=== PATIENT | male | born 1950 | race American Indian/Alaskan Native ===

== ENCOUNTER 2017-02-15 12:02 | Emergency (ER) | payer MEDICARE ==
[2017-02-15 12:52] LABS: Basophils % (Auto) 0.7 % (0.0-1.8); Eosinophils % (Auto) 0.7 % (0.0-4.3); Hematocrit 37.8 % (35.5-45.6); Hemoglobin 12.5 gm/dl (11.8-15.2); Mean Corpuscular HGB Conc 33 % (32-34); Mean Corpuscular Hemoglobin 31 pg (28-32); Mean Corpuscular Volume 93 fl (84-94); Platelet Count 179 K/mm3 (140-440); Red Blood Count 4.07 M/mm3 (3.65-5.03); White Blood Count 6.5 K/mm3 (4.5-11.0)
--- NOTE | 2017-02-15 12:59 | Emergency Department Report ---
ED Seizure HPI - General Chief Complaint: Seizure Stated Complaint: SEIZURE Time Seen by Provider: 02/15/17 12:04 Source: patient, EMS, RN notes reviewed Mode of arrival: Stretcher Limitations: No Limitations - History of Present Illness Initial Comments: 66-year-old male presents to the emergency department via EMS from a local detention after a witnessed seizure. Per report, the patient was sitting in his wheelchair when he had a seizure. Patient fell out of wheelchair and reportedly hit his head. Patient has a known history of seizures and apparently has been taking his medication at the detention. Patient is denying complaints at this time. There are no other complaints. MD Complaint: seizure -: Sudden, This morning Description of Episode: tonic-clonic movement Witnessed:: Yes Trauma: Yes (hit head on floor) Seizure History: known seizure disorder, compliant with medication Place: other (detention) Possible Precipitating Event: none Associated Symptoms: denies other symptoms Treatments Prior to Arrival: none - Related Data Allergies Allergy/AdvReac Type Severity Reaction Status Date / Time No Known Allergies Allergy Unverified 02/15/17 12:47 ED Review of Systems ROS: Stated complaint: SEIZURE Other details as noted in HPI Comment: All other systems reviewed and negative Neurological: as per HPI (seizure) ED Past Medical Hx - Past Medical History Previous Medical History?: Yes Hx Hypertension: Yes Hx Seizures: Yes Hx Psychiatric Treatment: Yes (Bipolar) Additional medical history: Hepatitis C - Surgical History Past Surgical History?: No - Family History Family history: no significant - Social History Smoking Status: Former Smoker Substance Use Type: None ED Physical Exam - General Limitations: No Limitations General appearance: alert, in no apparent distress - Head Head exam: Present: atraumatic, normocephalic - Eye Eye exam: Present: normal appearance, PERRL, EOMI - ENT ENT exam: Present: normal exam, normal orophraynx, mucous membranes moist - Neck Neck exam: Present: normal inspection, full ROM. Absent: tenderness - Respiratory Respiratory exam: Present: normal lung sounds bilaterally. Absent: respiratory distress - Cardiovascular Cardiovascular Exam: Present: regular rate, normal rhythm, normal heart sounds - GI/Abdominal GI/Abdominal exam: Present: soft, normal bowel sounds. Absent: distended, tenderness - Extremities Exam Extremities exam: Present: normal inspection, full ROM. Absent: tenderness - Back Exam Back exam: Present: normal inspection, full ROM. Absent: tenderness - Neurological Exam Neurological exam: Present: alert, oriented X3. Absent: motor sensory deficit - Skin Skin exam: Present: warm, dry, intact ED Course Vital Signs 02/15/17 02/15/17 12:40 12:50 Temperature 98.4 F Pulse Rate 101 H Respiratory 16 16 Rate Blood Pressure 161/104 O2 Sat by Pulse 98 98 Oximetry ED Medical Decision Making - Lab Data Result diagrams: 02/15/17 12:36 02/15/17 12:36 - Radiology Data Radiology results: report reviewed Head CT shows a left parietal scalp hematoma. There is left temporal encephalomalacia. There are no other acute abnormalities. - Medical Decision Making Lab and imaging results reviewed. Patient has had no further seizure activity in the emergency department. Patient will be discharged back to the detention at this time. - Differential Diagnosis seizure, closed head injury, electrolyte abnormality, UTI Critical care attestation.: If time is entered above; I have spent that time in minutes in the direct care of this critically ill patient, excluding procedure time. ED Disposition Clinical Impression: Seizure disorder Scalp hematoma Qualifiers: Encounter type: initial encounter Qualified Code(s): S00.03XA - Contusion of scalp, initial encounter Disposition: DC/TX-70 ANOTHER TYPE HLTHCARE Is pt being admited?: No Condition: Stable Instructions: Recurrent Seizures Adult (ED), Scalp Contusion in Adults (ED) Referrals: PRIMARY CARE, [Primary Care Provider] - 3-5 Days Time of Disposition: 14:00
[2017-02-15 13:09] LABS: Anion Gap 17 mmol/L; BUN/Creatinine Ratio 17.14; Blood Urea Nitrogen 12 mg/dL (9-20); Calcium 8.9 mg/dL (8.4-10.2); Carbon Dioxide 25 mmol/L (22-30); Chloride 102.7 mmol/L (98-107); Glucose 117 mg/dL (75-100); Potassium 3.9 mmol/L (3.6-5.0); Sodium 141 mmol/L (137-145)
--- NOTE | 2017-02-15 13:15 | Cat Scan Report ---
CT HEAD WITHOUT CONTRAST: HISTORY: Head injury, seizure. Left parietal soft tissue scalp hematoma is identified. No calvarial fracture. The brain parenchyma demonstrates normal attenuation. There is no evidence for hemorrhage, mass, hydrocephalus or extra-axial fluid collection. There is an area of encephalomalacia in the left temporal lobe measuring 4.1 x 2.1 cm which presumably represents a chronic ischemic infarct. The remaining brain parenchyma is within normal limits. The mastoid air cells and visualized portions of the sinuses are normal. IMPRESSION: No acute intracranial process. Left parietal scalp hematoma. Left temporal lobe encephalomalacia.
[2017-02-15 13:46] LABS: Bilirubin,Urine NEG (Negative); Blood,Urine NEG (Negative); Ketones,Urine NEG (Negative); Leukocyte Esterase,Urine NEG (Negative); Nitrite,Urine NEG (Negative)
[2017-02-15 18:06] VITALS: BP 168/76
== END 2017-02-15 18:13 | disposition other institution (70) ==
LOC: ED 12:02
DX: G40.909 Epilepsy, unspecified, not intractable, without status epilepticus (principal); I10 Essential (primary) hypertension; I50.9 Heart failure, unspecified; F31.9 Bipolar disorder, unspecified; Z86.19 Personal history of other infectious and parasitic diseases; Z87.891 Personal history of nicotine dependence
CPT/HCPCS: 36415; 70450; 80048; 81001; 85025

== ENCOUNTER 2017-10-12 00:33 | Emergency (ER) | payer MEDICARE ==
[2017-10-12] MEDS ORDERED: NACL 0.9% 1000 ML 1,000 ML IV ONE (00:46)
[2017-10-12] MEDS ORDERED: KEPPRA 1,000 MG/NS 0.75% 100ML 1,000 MG/100 ML BAG IV ONE (00:46)
[2017-10-12] MEDS ORDERED: FIORICET PO ONE (00:48)
--- NOTE | 2017-10-12 00:51 | Emergency Department Report ---
HPI - General Chief Complaint: Fall Time Seen by Provider: 10/12/17 00:38 - HPI HPI: Room 19 The patient is a 67-year-old male presenting with chief complaint of fall. The patient was sent from [facility] after he was found to have a hematoma on his forehead. The patient states he went to sleep tonight at 23:00 but awakened on the floor. The patient states he believes he had a seizure. The patient noticed the hematoma on his forehead. Patient now complains of soreness to his head from his fall. Patient denied chest pain, abdominal pain or shortness of breath Location: Head Duration: [See above] Quality: Headache Severity: Moderate Modifying factors: [see above] Context: [see above] Mode of transportation: [not driving] ED Past Medical Hx - Past Medical History Previous Medical History?: Yes Hx Hypertension: Yes Hx Seizures: Yes Hx Psychiatric Treatment: Yes (Bipolar) Additional medical history: Hepatitis C - Surgical History Past Surgical History?: Yes Additional Surgical History: right knee, abdominal sx? - Family History Family history: no significant - Social History Smoking Status: Never Smoker Substance Use Type: None (denies illicit drug use), Prescribed - Medications Home Medications: Home Medications Medication Instructions Recorded Confirmed Last Taken Type traMADol [Ultram] 50 mg PO Q6HR PRN #10 tablet 10/12/17 Unknown Rx ED Review of Systems ROS: Stated complaint: FALL Other details as noted in HPI Eyes: denies: eye pain ENT: denies: throat pain Respiratory: denies: shortness of breath Cardiovascular: denies: chest pain Gastrointestinal: denies: abdominal pain Genitourinary: denies: dysuria Musculoskeletal: denies: back pain Neurological: headache Physical Exam - Physical Exam Vital Signs: Vital Signs 10/12/17 00:40 Temperature 98.2 F Pulse Rate 107 H Blood Pressure 153/97 O2 Sat by Pulse 96 Oximetry Physical Exam: GENERAL: The patient is well-developed well-nourished male lying on stretcher not appear to be in acute distress. [] HEENT: Normocephalic. Moderate hematoma to the left/center forehead. Extraocular motions are intact. Patient has moist mucous membranes. NECK: Supple. No axial tenderness to palpation CHEST/LUNGS: Clear to auscultation. There is no respiratory distress noted. HEART/CARDIOVASCULAR: Regular. There is no tachycardia. There is no gallop rub or murmur. ABDOMEN: Abdomen is soft, nontender. Patient has normal bowel sounds. There is no abdominal distention. SKIN: There is no rash. There is no diaphoresis. NEURO: The patient is awake, alert, and oriented. The patient is cooperative. The patient has no focal neurologic deficits. The patient has normal speech. Cranial nerves II through XII grossly intact, no drift MUSCULOSKELETAL: There is no evidence of acute injury. ED Course Vital Signs 10/12/17 00:40 Temperature 98.2 F Pulse Rate 107 H Blood Pressure 153/97 O2 Sat by Pulse 96 Oximetry ED Medical Decision Making - Radiology Data Radiology results: report reviewed (CT head, CT cervical spine), image reviewed (CT head, CT cervical spine) FINAL REPORT EXAM: CT HEAD/BRAIN WO CON HISTORY: fall, headache COMPARISON: CT of the head from January 2017. TECHNIQUE: Axial images obtained skull base through vertex. FINDINGS: No acute intracranial hemorrhage, midline shift or pathologic extra axial fluid collection. Ventricles and cisterns are normal in size and configuration for the patient's age. Stable focal area of volume loss involving the posterior left temporal lobe. Stable mild diffuse volume loss of the bilateral cerebellar hemispheres. Otherwise, moreno-white differentiation preserved. Calvarium grossly intact. Prominent soft tissue hematoma over the left frontal calvarium. Mild to moderate polypoid mucosal thickening the visualized paranasal sinuses. Mastoid air cells are clear. Prior cataract surgery. IMPRESSION: No grossly acute intracranial abnormality. Soft tissue hematoma along the left frontal calvarium. No calvarial fracture. Stable focal area of volume loss involving the posterior left temporal lobe which may relate to sequelae of prior trauma or ischemia in stable mild volume loss of the bilateral cerebellar hemispheres. Transcribed By: LMA Dictated By: DANNIELLE COX MD Electronically Authenticated By: DANNIELLE COX MD Signed Date/Time: 10/12/17215 DD/ 5 TD/TT: 10/12/17215 FINAL REPORT EXAM: CT CERVICAL SPINE WO CON HISTORY: fall, headache COMPARISON: None available. TECHNIQUE: Axial images obtained through the cervical spine. Additional sagittal and coronal reformatted images were obtained. FINDINGS: Mild levoconvex curvature of the cervical spine. Cervical vertebral body heights are preserved. No acute fracture or traumatic subluxation. Odontoid process, articular pillars and occipital condyles are intact. Mild loss of disc height throughout the cervical spine. Mild canal stenosis and moderate foraminal narrowing at several levels due to uncovertebral hypertrophy and facet changes. Mild to moderate calcified plaque along the carotid bifurcations. IMPRESSION: No acute fracture or subluxation of the cervical spine. Mild degenerative changes. Mild levoconvex curvature which may be positional could relate to muscle spasm. Transcribed By: LMA Dictated By: DANNIELLE COX MD Electronically Authenticated By: DANNIELLE COX MD Signed Date/Time: 10/12/17229 DD/ 9 TD/TT: 10/12/17229 - Differential Diagnosis seizure, closed head injury, ICH, fall Critical care attestation.: If time is entered above; I have spent that time in minutes in the direct care of this critically ill patient, excluding procedure time. ED Disposition Clinical Impression: Closed head injury Disposition: - TO HOME OR SELFCARE Is pt being admited?: No Does the pt Need Aspirin: No Condition: Stable Instructions: Minor Head Injury (ED) Additional Instructions: Return to the emergency department immediately should you develop worsening symptoms, fever, inability to tolerate food or liquid or any other concerns. Prescriptions: traMADol [Ultram] 50 mg PO Q6HR PRN #10 tablet PRN Reason: Pain Referrals: SOLITARIO HOLBROOK MD [Staff Physician] - 3-5 Days Time of Disposition: 02:57
--- NOTE | 2017-10-12 02:20 | Cat Scan Report ---
FINAL REPORT EXAM: CT HEAD/BRAIN WO CON HISTORY: fall, headache COMPARISON: CT of the head from January 2017. TECHNIQUE: Axial images obtained skull base through vertex. FINDINGS: No acute intracranial hemorrhage, midline shift or pathologic extra axial fluid collection. Ventricles and cisterns are normal in size and configuration for the patient's age. Stable focal area of volume loss involving the posterior left temporal lobe. Stable mild diffuse volume loss of the bilateral cerebellar hemispheres. Otherwise, moreno-white differentiation preserved. Calvarium grossly intact. Prominent soft tissue hematoma over the left frontal calvarium. Mild to moderate polypoid mucosal thickening the visualized paranasal sinuses. Mastoid air cells are clear. Prior cataract surgery. IMPRESSION: No grossly acute intracranial abnormality. Soft tissue hematoma along the left frontal calvarium. No calvarial fracture. Stable focal area of volume loss involving the posterior left temporal lobe which may relate to sequelae of prior trauma or ischemia in stable mild volume loss of the bilateral cerebellar hemispheres.
--- NOTE | 2017-10-12 02:35 | Cat Scan Report ---
FINAL REPORT EXAM: CT CERVICAL SPINE WO CON HISTORY: fall, headache COMPARISON: None available. TECHNIQUE: Axial images obtained through the cervical spine. Additional sagittal and coronal reformatted images were obtained. FINDINGS: Mild levoconvex curvature of the cervical spine. Cervical vertebral body heights are preserved. No acute fracture or traumatic subluxation. Odontoid process, articular pillars and occipital condyles are intact. Mild loss of disc height throughout the cervical spine. Mild canal stenosis and moderate foraminal narrowing at several levels due to uncovertebral hypertrophy and facet changes. Mild to moderate calcified plaque along the carotid bifurcations. IMPRESSION: No acute fracture or subluxation of the cervical spine. Mild degenerative changes. Mild levoconvex curvature which may be positional could relate to muscle spasm.
[2017-10-12] MEDS ORDERED: ULTRAM PO ONE (02:57)
[2017-10-12] MEDS ORDERED: ULTRAM ONE (05:21)
[2017-10-12 05:36] VITALS: BP 144/89
== END 2017-10-12 05:35 | disposition home or self-care (01) ==
LOC: ED 00:33
DX: S00.83XA Contusion of other part of head, initial encounter (principal); I10 Essential (primary) hypertension; W18.30XA Fall on same level, unspecified, initial encounter; Y93.89 Activity, other specified; Y92.89 Other specified places as the place of occurrence of the external cause; Y99.8 Other external cause status; S09.90XA Unspecified injury of head, initial encounter
CPT/HCPCS: 70450; 72125; 96365; 99284; J1953; J7030

== ENCOUNTER 2017-11-08 21:00 | Emergency (ER) | payer MEDICARE ==
--- NOTE | 2017-11-08 21:50 | Emergency Department Report ---
ED Seizure HPI - General Chief Complaint: Fall Stated Complaint: FALL/POSS SEIZURE Time Seen by Provider: 11/08/17 21:42 Source: patient, EMS, RN notes reviewed Mode of arrival: Stretcher Limitations: No Limitations - History of Present Illness Initial Comments: Mr. Coello is a 67 yo male who has been in his normal state of health when he had a seizure prior to arrival. He fell out of bed due to the seizure. He has right leg pain and right hip pain. He denies headache. Denies neck pain. Mr. Coello has a history of seizure and hepatitis. He takes Keppra. He presents via EMS from [facility]. No other injuries as a result of the seizure. I reviewed the documentation provided. Last Keppra level obtained October 2017 was within therapeutic range MD Complaint: seizure -: Sudden Description of Episode: loss of consciousness, tonic-clonic movement Witnessed:: No Seizure History: known seizure disorder Place: other ([facility]) Possible Precipitating Event: other (right knee pain and right hip pain) Associated Symptoms: denies other symptoms - Related Data Previous Rx's Medication Instructions Recorded Last Taken Type traMADol [Ultram] 50 mg PO Q6HR PRN #10 tablet 10/12/17 Unknown Rx Allergies Allergy/AdvReac Type Severity Reaction Status Date / Time No Known Allergies Allergy Unverified 02/15/17 12:47 ED Review of Systems ROS: Stated complaint: FALL/POSS SEIZURE Other details as noted in HPI ED Past Medical Hx - Past Medical History Hx Hypertension: Yes Hx Seizures: Yes Hx Psychiatric Treatment: Yes (Bipolar) Additional medical history: Hepatitis C - Surgical History Past Surgical History?: Yes Additional Surgical History: right knee, abdominal sx? - Social History Smoking Status: Former Smoker Substance Use Type: Alcohol - Medications Home Medications: Home Medications Medication Instructions Recorded Confirmed Last Taken Type traMADol [Ultram] 50 mg PO Q6HR PRN #10 tablet 10/12/17 Unknown Rx ED Physical Exam - General Limitations: No Limitations General appearance: alert, in no apparent distress - Head Head exam: Present: atraumatic, normocephalic - Eye Eye exam: Present: normal appearance - ENT ENT exam: Present: mucous membranes moist - Neck Neck exam: Present: normal inspection - Respiratory Respiratory exam: Present: normal lung sounds bilaterally. Absent: respiratory distress, wheezes, rales, rhonchi - Cardiovascular Cardiovascular Exam: Present: regular rate, normal rhythm, normal heart sounds. Absent: systolic murmur, diastolic murmur, rubs, gallop - GI/Abdominal GI/Abdominal exam: Present: soft, other (large central vertical surgical scar). Absent: distended, tenderness, guarding, rebound - Rectal Rectal exam: Present: deferred - Extremities Exam Extremities exam: Present: other (right knee mildly edematous mild tenderness without subluxation or obvious deformity right hip no tenderness full range of motion) - Back Exam Back exam: Present: normal inspection - Neurological Exam Neurological exam: Present: alert, oriented X3 - Psychiatric Psychiatric exam: Present: normal mood, flat affect - Skin Skin exam: Present: warm, dry, intact, normal color. Absent: rash ED Course Vital Signs 11/08/17 11/08/17 11/08/17 21:21 21:23 21:30 Temperature 98.6 F Pulse Rate 91 H 81 92 H Respiratory 12 18 12 Rate Blood Pressure 164/108 159/118 Blood Pressure 159/118 [Left] O2 Sat by Pulse 99 99 99 Oximetry 11/08/17 11/08/17 11/08/17 22:11 22:15 23:24 Temperature Pulse Rate 91 H Respiratory 12 12 Rate Blood Pressure Blood Pressure [Left] O2 Sat by Pulse 99 Oximetry ED Medical Decision Making - Lab Data Vital Signs - 24 hr 11/08/17 11/08/17 11/08/17 21:21 21:23 21:30 Temperature 98.6 F Pulse Rate 91 H 81 92 H Respiratory 12 18 12 Rate Blood Pressure 164/108 159/118 Blood Pressure 159/118 [Left] O2 Sat by Pulse 99 99 99 Oximetry 11/08/17 11/08/17 11/08/17 22:11 22:15 23:24 Temperature Pulse Rate 91 H Respiratory 12 12 Rate Blood Pressure Blood Pressure [Left] O2 Sat by Pulse 99 Oximetry - EKG Data -: EKG Interpreted by Ne - EKG Data 11/08/17 21:57 EKG obtained at 2128 Normal sinus rhythm 80 bpm with APCs sinus pause prolonged MA interval, normal axis, no ST elevation no signs of ischemia no significant Q waves - Medical Decision Making Mr. Coello is a pleasant 59-year-old male with history of seizure disorder. He received IV Keppra load. No evidence of severe injury from the fall of bed. He has mild right knee pain. He has hx of hip and knee pain with remote trauma to both areas. NO new injury. Patient does not walk due to the injuries according to the report. The radiographs corresponds to the hx given by patient. I reviewed recent lab work obtained in the outpatient setting. CBC CMP unremarkable. Mr. Coello will be dc'd back to SNF. Critical care attestation.: If time is entered above; I have spent that time in minutes in the direct care of this critically ill patient, excluding procedure time. ED Disposition Clinical Impression: Seizure, Fall Disposition: DC/TX-70 ANOTHER TYPE HLTHCARE Is pt being admited?: No Does the pt Need Aspirin: No Condition: Stable Instructions: Epilepsy (ED) Time of Disposition: 00:10
[2017-11-08] MEDS ORDERED: TYLENOL PO ONE (21:52)
[2017-11-08] MEDS ORDERED: KEPPRA 1,000 MG in NACL 0.9% 100 ML IV ONE (21:52)
[2017-11-08] MEDS ORDERED: KEPPRA 1,000 MG/NS 0.75% 100ML 1,000 MG/100 ML BAG IV ONE (23:00)
--- NOTE | 2017-11-08 23:12 | XRay Report ---
FINAL REPORT EXAM: XR HIP 2-3V RT HISTORY: fall out of bed TECHNIQUE: Right hip two views PRIORS: None. FINDINGS: There are surgical screws present at the superior acetabulum bridging the SI joint and extending across the right acetabulum from the superior aspect through the superior ramus. There is marked heterotopic calcification at the right hip joint along with joint space narrowing. There is no acute fracture identified. Narrowing at the SI joints noted bilaterally. IMPRESSION: Marked heterotopic calcification at the right hip joint. Postoperative changes with right pelvic surgical screws present No acute fracture or dislocation identified.
--- NOTE | 2017-11-08 23:37 | XRay Report ---
FINAL REPORT EXAM: XR KNEE 3V RT HISTORY: fall out of bed knee pain TECHNIQUE: Right knee three views PRIORS: None. FINDINGS: Skeletal structures are osteopenic. There is of the dense focus within the proximal tibia possibly methylmethacrylate or remote bone infarct. There is evidence for prior proximal fibular fracture of bony deformity. There is severe lateral joint space narrowing along with medial joint space narrowing no definitive acute fracture is identified. There is no evidence for joint effusion. IMPRESSION: Findings consistent with remote distal tibia and fibular fractures Tibial osteopenia Dense focus within the proximal tibia could reflect old bone infarct Marked degenerative changes of the tibia femoral joint with severe lateral joint space narrowing
[2017-11-09 01:26] VITALS: BP 189/84
== END 2017-11-09 01:33 | disposition other institution (70) ==
LOC: ED 21:00
DX: M25.551 Pain in right hip (principal); M25.561 Pain in right knee; G40.909 Epilepsy, unspecified, not intractable, without status epilepticus; I10 Essential (primary) hypertension; F31.9 Bipolar disorder, unspecified; Z86.19 Personal history of other infectious and parasitic diseases; Z87.891 Personal history of nicotine dependence; W18.39XA Other fall on same level, initial encounter; Y93.89 Activity, other specified; Y92.89 Other specified places as the place of occurrence of the external cause; Y99.8 Other external cause status
CPT/HCPCS: 73502; 73562; 93005; 93010; 96365; 99284; J1953

== ENCOUNTER 2018-01-01 20:04 | Emergency (ER) | payer MEDICARE ==
[2018-01-01] MEDS ORDERED: NORCO 5/325 PO ONE (21:34)
--- NOTE | 2018-01-01 21:52 | Emergency Department Report ---
HPI - General Chief Complaint: Fall Time Seen by Provider: 01/01/18 21:27 - HPI HPI: Room 1 The patient is a 67-year-old male presenting with a chief complaint of headache after fall. The patient states 2 days ago while exercising his right knee gave out on him and the patient fell striking his head on the table. The patient has Steri-Strips placed at the halfway was sent today for a head CT for further evaluation. Patient complains of a headache. Patient denies nausea/ vomiting ED Past Medical Hx - Past Medical History Previous Medical History?: Yes Hx Hypertension: Yes Hx Seizures: Yes Hx Psychiatric Treatment: Yes (Bipolar) Additional medical history: Hepatitis C - Surgical History Past Surgical History?: Yes Additional Surgical History: right knee, abdominal sx? - Family History Family history: no significant - Social History Smoking Status: Former Smoker Substance Use Type: None - Medications Home Medications: Home Medications Medication Instructions Recorded Confirmed Last Taken Type traMADol [Ultram] 50 mg PO Q6HR PRN #10 tablet 10/12/17 Unknown Rx traMADol [Ultram] 50 mg PO Q6HR PRN #14 tablet 01/01/18 Unknown Rx ED Review of Systems ROS: Stated complaint: HEAD PAIN Other details as noted in HPI Eyes: denies: eye pain ENT: denies: throat pain Cardiovascular: denies: chest pain Gastrointestinal: denies: abdominal pain, nausea, vomiting Musculoskeletal: arthralgia. denies: back pain Neurological: headache Physical Exam - Physical Exam Vital Signs: Vital Signs 01/01/18 20:38 Temperature 98.4 F Pulse Rate 91 H Respiratory 15 Rate Blood Pressure 159/93 Blood Pressure 159/93 [Right] O2 Sat by Pulse 97 Oximetry Physical Exam: GENERAL: The patient is well-developed well-nourished male lying on stretcher not appearing to be in acute distress. And has Steri-Strips on his forehead HEENT: Normocephalic. Steri-Strips overlying laceration to left forehead. Extraocular motions are intact. Patient has moist mucous membranes. NECK: Supple. Trachea midline. No axial step offs but cervical spine is tender to palpation CHEST/LUNGS: Clear to auscultation. There is no respiratory distress noted. HEART/CARDIOVASCULAR: Regular. There is no tachycardia. There is no gallop rub or murmur. ABDOMEN: Abdomen is soft, nontender. Patient has normal bowel sounds. There is no abdominal distention. SKIN: There is no rash. There is no edema. There is no diaphoresis. NEURO: The patient is awake, alert, and oriented. The patient is cooperative. The patient has no focal neurologic deficits. The patient has normal speech. Cranial nerves II through XII grossly intact, no drift MUSCULOSKELETAL:There is no evidence of acute injury. ED Course Vital Signs 01/01/18 20:38 Temperature 98.4 F Pulse Rate 91 H Respiratory 15 Rate Blood Pressure 159/93 Blood Pressure 159/93 [Right] O2 Sat by Pulse 97 Oximetry ED Medical Decision Making - Radiology Data Radiology results: report reviewed (CT head, CT cervical spine), image reviewed (CT head, CT cervical spine) CT head (read by radiologist)-scalp hematoma. No evidence of intracranial hemorrhage or skull fracture. Old areas of encephalomalacia visualized left temporal parietal region and posterior aspect of the cerebellar spheres. No acute intracranial abnormalities are seen. Mild paranasal sinus disease as described. CT cervical spine (read by radiologist)-no fracture or subluxation seen. Facet arthritis and degenerative disc disease is present as described. This has not changed significantly. - Differential Diagnosis close head injury, intracranial hemorrhage, cervical fracture, cervical str Critical care attestation.: If time is entered above; I have spent that time in minutes in the direct care of this critically ill patient, excluding procedure time. ED Disposition Clinical Impression: Closed head injury Disposition: [id number]/TX-[id number] ANOTHER TYPE HLTHCARE Is pt being admited?: No Does the pt Need Aspirin: No Condition: Stable Instructions: Minor Head Injury (ED) Additional Instructions: Return to the emergency department immediately should you develop worsening symptoms, fever, inability to tolerate food or liquid or any other concerns. Prescriptions: traMADol [Ultram] 50 mg PO Q6HR PRN #14 tablet PRN Reason: Pain Referrals: OFELIA LABOY DO [Primary Care Provider] - 3-5 Days Time of Disposition: 22:13
[2018-01-02 01:22] VITALS: BP 157/97
--- NOTE | 2018-01-04 14:25 | Cat Scan Report ---
FINAL REPORT PROCEDURE: CT CERVICAL SPINE WO CON TECHNIQUE: Computerized tomography of the cervical spine was performed from the skull base to T1 without contrast material. HISTORY: S/P fall/Head laceration COMPARISON: Prior study 10/12/2017 FINDINGS: No fracture or subluxation is visualized. The prevertebral soft tissues appear normal. Anterior osteophytic spurring is present throughout the cervical spine greatest at C3-4 through the C7-T1 level. Bridging anterior osteophytic spurs are developing. Smaller posterior osteophytic spurs are present C4-5, C5-6 disc spaces. Asymmetric posterior osteophytic spurring greater to the left than the right also seen at the C3-4 level. No focal disc herniations are seen. There is mild narrowing of the anterior epidural space at the posterior spurring. No definite spinal stenosis or cord compression is seen. Mild osteoarthritic changes seen in the SI joints bilaterally. There is mild curvature of the cervical spine convex to the left. This is seen on the prior study as well. This may represent compensatory curvature secondary to a thoracic scoliosis. IMPRESSION: No fracture or subluxation seen. Facet arthritis and degenerative disc disease is present as described. This has not changed significantly..
--- NOTE | 2018-01-04 14:25 | Cat Scan Report ---
FINAL REPORT PROCEDURE: CT HEAD/BRAIN WO CON TECHNIQUE: Computerized tomography of the head was performed without contrast material. HISTORY: s/p fall/head laceration COMPARISON: Prior CT scan of the brain 10/12/2017 FINDINGS: There is no evidence of intracranial hemorrhage. No parenchymal hemorrhage mass lesions or mass effect are seen. Scalp hematoma seen overlying the left side of the forehead. Moderate-sized old area of encephalomalacia visualized involving the posterior aspect of the left temporal lobe extending into the left parietal lobe. Small old area of encephalomalacia visualized posterior aspect right and left cerebellar hemispheres. Ventricles are normal size and are midline. No abnormal extra-axial fluid collections or masses are seen. Patchy mucosal disease seen in a few of the ethmoid air cells. Visualized portions of the mastoid air cells are clear. IMPRESSION: Scalp hematoma. No evidence of intracranial hemorrhage or skull fracture. Old areas of encephalomalacia visualized left temporal parietal region and posterior aspect of the cerebellar hemispheres. No acute intracranial abnormalities are seen. Mild paranasal sinus disease as described.
== END 2018-01-02 01:25 | disposition other institution (70) ==
LOC: ED 20:04
DX: S09.90XA Unspecified injury of head, initial encounter (principal); W18.30XA Fall on same level, unspecified, initial encounter; I10 Essential (primary) hypertension; Y93.89 Activity, other specified; Y92.89 Other specified places as the place of occurrence of the external cause; Y99.8 Other external cause status
CPT/HCPCS: 70450; 72125